=== PATIENT | female | born 1945 | race Caucasian/White ===

== ENCOUNTER → 2017-01-13 | Outpatient (CLI) | payer MEDICARE, OTHER ==
[~2017-01-13] MED LIST: ACETAMINOPHEN500 M4 PO; ALLEGRA PO; ALLEGRA180 MG; ALLEGRA180 MG PO; AMOXICILLIN PO; AMOXICILLIN875 MG PO; APRESOLINE PO; ASPIRIN PO; ATENOLOL PO; AZMACORT20 GM INH; BACTRIM DS TABL1 TA1 PO; BUPROPION XL300 MG PO; CALCIUM PO; CARVEDILOL12.5 MG PO; CELEBREX PO; CENTRAL VITE TA1 TAB; CENTRUM SILVER PO; CLONIDINE PO; COREG PO; CORTISPORI10 ML OTIC AS; COUMADIN PO; COUMADIN5 MG PO; DIOVAN HCT 160-1 TAB PO; DIOVAN HCT 160/1 TAB PO; DIOVAN HCT 320/1 TAB PO; FISH OIL 10001000 MG PO; FISH OIL500 M1 PO; FLEXERIL10 M1 PO; GLUCOPHAGE500 MG PO; GLUCOVANCE 2.5/1 TA1 PO; GLYBURIDE-METFO1 TA2 PO; HUMALOG100 U/ML SUBQ; HYDRALAZINE HC100 MG PO; LANTUS100 U/M1 SQ; LANTUS100 U/ML; LANTUS100 U/ML SUBQ; LASIX PO; LEVOXYL125 MCG PO; LOVENOX SUBQ; MEDROL PO; METFORMIN PO; MICRONASE5 M2 PO; MULTI VITAMIN1 EACH; NEXIUM; NORVASC PO; PHENERGAN25 MG PO; PRAVACHOL PO; PREDNISONE PO; PREVACID PO; PROMETHAZINE D118 ML PO; QUINIDINE GLUC324 MG PO; SYNTHROID PO; SYNTHROID125 PO; TEKTURNA PO; TICLID250 MG PO; TRICOR PO; TRICOR145 MG PO; TYLOX 5/500 CAP1 CAP PO; VALSARTAN-HCTZ1 EAC3 PO; VIT D PO; VITAL-D RX TABL1 TAB; WELLBUTRIN XL PO; ZETIA PO
--- NOTE | ~2017-01-13 | BD1 ---
[facility] A Service of [facility] RADIOLOGY TEXT RESULTS PATIENT: JESSICA CORDOVA LOCATION: [facility] : 49 UNIT #: [id number] AGE: [address]: Jessica Luna MD SEX: F ORDER DR: [id number] [address] [address] [id number] O MR#: [id number] Acc #: [id number] NAME: JESSICA CORDOVA : 1945 SEX: F STUDY DATE/TIME: 01/13/2017 9:49 UNIT: [facility] ROOM: STUDY DESCRIPTION: Dexa Bone Dens 1+ Site Attending Physician: Jessica Luna M.D. Referring Physician: Jessica Luna M.D. Ordering Physician: Jessica Luna M.D. Primary Care Physician: Jessica Luna M.D. MEDICAL IMAGING REPORT This report is preliminary unless electronic signature is present. EXAM Bone densitometry INDICATION 71-year-old postmenopausal female for routine screening. FINDINGS The bone mineral density of the lumbar spine (L1-L4) is calculated at 1.374 g/cm2. This correlates with a T-score of 1.4 and a Z-score of 3. This is normal bone mineralization. There has been a 3.5% decreased since the 2013 comparison. The bone mineral density of the right proximal femoral neck region was calculated at 0.843 g/cm2. This correlates with a T-score of -1.4 and a Z-score of 0.2. There has been no significant change since 2013. This is considered to be osteopenia. The bone mineral density of the left proximal femoral neck region is calculated at 0.841 g/cm2. This correlates with a T-score of -1.4 and a Z-score of 0.2. This is classified as osteopenia. There has been an 8.9% decrease from 2014. IMPRESSION 1. Osteopenia. 2. Decreased bone mineral density since the 2013 comparison. Dictated by... Patrick Gonzales M.D. THIS IS AN ELECTRONICALLY VERIFIED REPORT Patrick Gonzales M.D. at 01/14/2017 10:52 AM [facility] A Service of [facility] RADIOLOGY TEXT RESULTS PATIENT: JESSICA CORDOVA LOCATION: [facility] #: [id number] : 49 UNIT #: [id number] AGE: [address]: Jessica Luna MD SEX: F ORDER DR: MAURY/ashwin TD: 01/14/2017 09:37 JOB #: [id number] MEDICAL IMAGING REPORT Page 1 of 1
--- NOTE | ~2017-01-13 | MY11 ---
[facility] A Service of [facility] RADIOLOGY TEXT RESULTS PATIENT: JESSICA CORDOVA LOCATION: [facility] : 49 UNIT #: [id number] AGE: [address]: Jessica Luna MD SEX: F ORDER DR: [id number] [address] [address] [id number] O MR#: [id number] Acc #: [id number] NAME: JESSICA CORDOVA : 1945 SEX: F STUDY DATE/TIME: 01/13/2017 10:09 UNIT: [facility] ROOM: STUDY DESCRIPTION: MY Mammogram Screening Dig [place] Attending Physician: Jessica Luna M.D. Referring Physician: Jessica Luna M.D. Ordering Physician: Jessica Luna M.D. Primary Care Physician: Jessica Luna M.D. MEDICAL IMAGING REPORT This report is preliminary unless electronic signature is present. EXAM Digital screening mammogram 01/13/2017 HISTORY 71-year-old woman prior left breast excisional biopsy. Scar also marked upper outer quadrant right breast. No risk elevation. Annual screen. FINDINGS Digital imaging of each breast was completed utilizing screening protocol. Review includes FDA-approved CAD device. Breast parenchyma is fatty replaced. Vascular calcification is present. There is no breast mass. There are no interval occurring suspicious microcalcifications and no architectural deformity. IMPRESSION Negative mammogram. Annual screening recommended. Patients over the age of 40 are entered into a reminder system with target due date for the next mammogram. A result letter will also be sent to the patient. BIRADS: 1 Negative Dictated by... Simon Foreman M.D. THIS IS AN ELECTRONICALLY VERIFIED REPORT Simon Foreman M.D. at 01/13/2017 2:39 PM SAMIRA/yaneth TD: 01/13/2017 14:16 [facility] A Service of [facility] RADIOLOGY TEXT RESULTS PATIENT: JESSICA CORDOVA LOCATION: [facility] : 49 UNIT #: [id number] AGE: [address]: Jessica Luna MD SEX: F ORDER DR: JOB #: [id number] MEDICAL IMAGING REPORT Page 1 of 1
== END | disposition home or self-care (01) ==
LOC: SMAM 09:21
DX: Z12.31 Encounter for screening mammogram for malignant neoplasm of breast (principal); M81.0 Age-related osteoporosis without current pathological fracture; M85.80 Other specified disorders of bone density and structure, unspecified site; Z78.0 Asymptomatic menopausal state
CPT/HCPCS: 77080; G0202

== ENCOUNTER → 2017-02-26 | Outpatient (CLI) | payer MEDICARE, OTHER ==
--- NOTE | ~2017-02-26 | CR242 ---
[facility] A Service of [facility] RADIOLOGY TEXT RESULTS PATIENT: JESSICA CORDOVA LOCATION: [facility] : 49 UNIT #: [id number] AGE: [address]: Jessica Luna MD SEX: F ORDER DR: [id number] [address] [address] [id number] O MR#: [id number] Acc #: [id number] NAME: JESSICA CORDOVA : 1945 SEX: F STUDY DATE/TIME: 02/26/2017 11:39 UNIT: [facility] ROOM: STUDY DESCRIPTION: CR Thoracic Spine 2 Views Attending Physician: Jessica Luna M.D. Ordering Physician: Jessica Luna M.D. Primary Care Physician: Jessica Luna M.D. MEDICAL IMAGING REPORT This report is preliminary unless electronic signature is present. EXAM 2 views of the thoracic spine, 02/26/2017. HISTORY 71-year-old female with mid back pain for a few days. COMPARISON None FINDINGS Multilevel mild diminished disc height is present within the [id number] thoracic spine with large marginal near confluent anterolateral osteophyte formation. No acute fracture or subluxation. No osteolytic or osteoblastic abnormality. Left chest wall pacemaker in place. Gastric band device in place. Cholecystectomy. IMPRESSION 1. Mild diminished disc space height with marginal osteophyte formation [id number] thoracic spine. 2. No acute thoracic spine fracture or subluxation. Dictated by... Sophie Gary M.D. THIS IS AN ELECTRONICALLY VERIFIED REPORT Sophie Gary M.D. at 02/27/2017 12:28 PM FAYE/claudia TD: 02/26/2017 19:10 JOB #: [id number] [facility] A Service of [facility] RADIOLOGY TEXT RESULTS PATIENT: JESSICA CORDOVA LOCATION: [facility] : 49 UNIT #: [id number] AGE: [address]: Jessica Luna MD SEX: F ORDER DR: MEDICAL IMAGING REPORT Page 1 of 1
== END | disposition home or self-care (01) ==
LOC: SRAD 11:19
DX: M54.6 Pain in thoracic spine (principal); M51.84 Other intervertebral disc disorders, thoracic region; M25.78 Osteophyte, vertebrae
CPT/HCPCS: 72070